=== PATIENT | female | born 1975 | race Two or more races ===

== ENCOUNTER 2020-10-07 16:13 | Emergency (ER) | payer MEDICAID, OTHER ==
[~2020-10-07] VITALS: Ht 160 cm; Wt 86.2 kg
[2020-10-07] MEDS ORDERED: SODIUM CHLORIDE 0.9% 1,000 ML IV ONE (17:15)
[2020-10-07] MEDS ORDERED: DexAMETHasone SOD PHOS 10MG/1ML VIAL INJ IV ONE (17:15)
[2020-10-07] MEDS ORDERED: ACETAMINOPHEN 500 MG TAB PO ONE (17:15)
[2020-10-07] MEDS ORDERED: DOXYCYCLINE 100MG/250ML 250 ML IV ONE (17:15)
[2020-10-07 17:35] LABS: Urine Bacteria FEW /hpf (None Seen); Urine Blood Negative /uL (Negative); Urine Hyaline Cast FEW /lpf (0 - 2); Urine Mucus FEW (None Seen); Urine Specific Gravity 1.019 (1.001-1.035); Urine WBC 2 /hpf (0 - 5)
[2020-10-07 17:59] LABS: Basophils # (auto) 0 10 ^3/uL (0-0.2); Basophils % (auto) 0.2 % (0.0-2.0); Eosinophils # (auto) 0 10 ^3/uL (0-0.8); Hematocrit 38.9 % (36.0-46.0); Hemoglobin 13.2 g/dL (12.2-16.2); Lymphocytes # (auto) 0.4 10 ^3/uL (0.4-5.4); Lymphocytes % (auto) 8.3 % (10.0-50.0); Mean Corpuscular Hemoglobin 30.7 pg (28.0-32.0); Mean Corpuscular Volume 90.2 fL (80.0-100.0); Monocytes # (auto) 0.2 10 ^3/uL (0-1.3); Monocytes % (auto) 3.4 % (0.0-12.0); Neutrophils # (auto) 4.4 10 ^3/uL (1.6-8.6); Neutrophils % (auto) 88.1 % (37.0-80.0); Red Blood Cells 4.32 10^6/uL (4.0-5.20); Red Cell Distribution Width 13.4 % (11.8-14.3)
[2020-10-07 18:14] LABS: Albumin 3.6 g/dL (3.4-5.0); Calcium 8.5 mg/dL (8.5-10.1); Potassium 3.4 mmol/L (3.5-5.1)
[2020-10-07 18:19] LABS: BUN/Creatinine Ratio 11.5; Bilirubin, Total 0.3 mg/dL (0.2-1.0); Total Protein 8.6 g/dL (6.4-8.2)
[2020-10-07 19:07] VITALS: BP 155/88
[2020-10-13] MEDS ORDERED: LISI20TA28 PO (17:55)
== END 2020-10-07 19:08 | disposition home or self-care (01) ==
LOC: ER 16:15
DX: J18.9 Pneumonia, unspecified organism (principal); J01.00 Acute maxillary sinusitis, unspecified; R50.9 Fever, unspecified; Z20.822 Contact with and (suspected) exposure to COVID-19
CPT/HCPCS: 36415; 71045; 80053; 81001; 85025; 87426; 96365; 96375; 99284; J1100; J3490; 96361

== ENCOUNTER 2020-10-09 09:02 | Inpatient (IN) | payer MEDICAID ==
[~2020-10-09] VITALS: Ht 160 cm; Wt 81.8 kg
[2020-10-09 09:45] LABS: Basophils # (auto) 0 10 ^3/uL (0-0.2); Eosinophils # (auto) 0 10 ^3/uL (0-0.8); Hematocrit 39.7 % (36.0-46.0); Hemoglobin 13.4 g/dL (12.2-16.2); Lymphocytes # (auto) 0.7 10 ^3/uL (0.4-5.4); Mean Corpuscular Hemoglobin 30.4 pg (28.0-32.0); Mean Corpuscular Hgb Conc. 33.8 g/dL (32.0-36.0); Mean Corpuscular Volume 90.1 fL (80.0-100.0); Monocytes # (auto) 0.5 10 ^3/uL (0-1.3); Monocytes % (auto) 3.7 % (0.0-12.0); Neutrophils # (auto) 13.5 10 ^3/uL (1.6-8.6); Neutrophils % (auto) 91.3 % (37.0-80.0); Platelet Count (auto) 313 10^3/uL (140-450); Red Blood Cells 4.41 10^6/uL (4.0-5.20); Red Cell Distribution Width 13.4 % (11.8-14.3); White Blood Cell 14.8 10^3/uL (4.4-10.8)
[2020-10-09 10:03] LABS: Alanine Aminotransferase 30 U/L (13-56); Albumin 3.4 g/dL (3.4-5.0); Anion Gap 11 (5-15); Aspartate Aminotransferase 21 U/L (15-37); BUN/Creatinine Ratio 15.8; Blood Urea Nitrogen 15 mg/dL (7-18); Calcium 9.5 mg/dL (8.5-10.1); Carbon Dioxide 24 mmol/L (21-32); Chloride 107 mmol/L (98-107); GFR African American 82 mL/min; GFR Non-African American 68 mL/min; Glucose 127 mg/dL (74-106); Potassium 3.5 mmol/L (3.5-5.1); Sodium 142 mmol/L (136-145)
[2020-10-09 10:04] LABS: Lactic Acid w/Reflex 3.2 mmol/L (0.4-2.0)
[2020-10-09 10:08] LABS: Alkaline Phosphatase 92 U/L (45-117); Bilirubin, Total 0.4 mg/dL (0.2-1.0); Total Protein 8.1 g/dL (6.4-8.2)
[2020-10-09] MEDS ORDERED: ASPirin 81 mg TAB PO ONE (10:15)
[2020-10-09] MEDS ORDERED: AZITHROMYCIN 500MG/ 250ML 250 ML IV ONE (10:15)
[2020-10-09] MEDS ORDERED: ZINC SULFATE 220mg CAP or TAB PO ONE (10:15)
[2020-10-09] MEDS ORDERED: ASCORBIC ACID 500 MG TAB PO ONE (10:15)
[2020-10-09] MEDS ORDERED: DexAMETHasone SOD PHOS 10MG/1ML VIAL INJ IV ONE (10:15)
[2020-10-09] MEDS ORDERED: cefTRIAXone 1GM/50ML D5W 50 ML IV ONE (10:15)
[2020-10-09] MEDS ORDERED: ACETAMINOPHEN 500 MG TAB PO ONE (10:30)
[2020-10-09] MEDS ORDERED: REMDESIVIR PER PHARMACY 0 ML IV SCH (11:15)
[2020-10-09] MEDS ORDERED: KETOROLAC TROMETH 30 MG/ML 1ML VIAL IV ONE (11:15)
[2020-10-09] MEDS ORDERED: MORPHINE SULF INJ 2 MG/ML SYRINGE 1ML IV PRN ×2 (11:15)
[2020-10-09] MEDS ORDERED: NITROGLYCERIN 0.4 MG SL TAB SL PRN (11:15)
[2020-10-09] MEDS ORDERED: ACETAMINOPHEN 500 MG TAB PO PRN (11:15)
[2020-10-09 11:34] LABS: INR 0.94 (0.9-1.15); Partial Thromboplastin Time 25.6 sec (23.0-31.2)
[2020-10-09] MEDS: ONDANSETRON HCL 4 MG/2 ML VIAL IV PRN (11:51)
[2020-10-09 12:24] LABS: CRP High Sensitivity 3.82 mg/dL (< 0.3)
[2020-10-09] MEDS ORDERED: GABA-339 PO (14:05)
[2020-10-09] MEDS ORDERED: LISI-706 PO (14:05)
[2020-10-09] MEDS ORDERED: ASCO500T11 PO (14:05)
[2020-10-09] MEDS ORDERED: OMEP-434 PO (14:05)
[2020-10-09] MEDS ORDERED: ZINC220T6 PO (14:05)
[2020-10-09] MEDS ORDERED: REMDESIVIR 200 MG in NS 210ml LOADING DOSE ADULT IV ONE (15:00)
[2020-10-09 15:10] VITALS: BP 106/54
[2020-10-09 16:00] VITALS: BP 106/54
[2020-10-09 16:24] VITALS: BP 106/54
[2020-10-09] MEDS: ALBUTEROL SULF HFA 90MCG INH 200DOSE IN PRN (20:28)
[2020-10-09] MEDS: BUDESONIDE (INHALATION) 180 MCG IH IN SCH (20:28)
[2020-10-09] MEDS: DOXYCYCLINE 100 MG TAB/CAP PO SCH (21:56)
[2020-10-09] MEDS: ENOXAPARIN SOD 40 MG/0.4 ML SYRINGE SC SCH (21:56)
[2020-10-09] MEDS ORDERED: BUDESONIDE (INHALATION) 0.5 MG/2 ML NEB NEB SCH (22:00)
[2020-10-10] VITALS (7 sets, daily range): BP systolic 112–135; BP diastolic 49–72
[2020-10-10] MEDS: HYDROcodone-ACET 5/325MG TAB PO PRN ×2 (00:26→18:53)
[2020-10-10 05:21] LABS: Basophils # (auto) 0 10 ^3/uL (0-0.2); Basophils % (auto) 0.1 % (0.0-2.0); Eosinophils # (auto) 0 10 ^3/uL (0-0.8); Hematocrit 35.3 % (36.0-46.0); Lymphocytes # (auto) 0.9 10 ^3/uL (0.4-5.4); Mean Corpuscular Hemoglobin 30.5 pg (28.0-32.0); Mean Corpuscular Volume 89.5 fL (80.0-100.0); Monocytes # (auto) 0.5 10 ^3/uL (0-1.3); Monocytes % (auto) 3.9 % (0.0-12.0); Neutrophils # (auto) 11.2 10 ^3/uL (1.6-8.6); Platelet Count (auto) 291 10^3/uL (140-450); Red Blood Cells 3.94 10^6/uL (4.0-5.20); Red Cell Distribution Width 13.5 % (11.8-14.3); White Blood Cell 12.6 10^3/uL (4.4-10.8)
[2020-10-10 05:40] LABS: Albumin 2.8 g/dL (3.4-5.0); BUN/Creatinine Ratio 26.8; Potassium 3.6 mmol/L (3.5-5.1)
[2020-10-10 05:41] LABS: Bilirubin, Total 0.4 mg/dL (0.2-1.0); Total Protein 6.8 g/dL (6.4-8.2)
[2020-10-10] MEDS ORDERED: IVERMECTIN 3 MG TAB PO ONE (07:00)
[2020-10-10] MEDS: BUDESONIDE (INHALATION) 180 MCG IH IN SCH ×2 (07:00→19:25)
[2020-10-10] MEDS: ALBUTEROL SULF HFA 90MCG INH 200DOSE IN PRN ×2 (07:00→19:38)
[2020-10-10] MEDS: cefTRIAXone 1GM/50ML D5W 50 ML IV SCH (09:00)
[2020-10-10] MEDS: ZINC SULFATE 220mg CAP or TAB PO SCH (09:01)
[2020-10-10] MEDS: DexAMETHasone SOD PHOS 10MG/1ML VIAL INJ IV SCH (09:01)
[2020-10-10] MEDS: CHOLECALCIFEROL (VITD3) 2,000 UNIT CAP/TAB PO SCH (09:02)
[2020-10-10] MEDS: ASCORBIC ACID 1,000 MG TAB PO SCH (09:02)
[2020-10-10] MEDS: DOXYCYCLINE 100 MG TAB/CAP PO SCH ×2 (09:02→22:00)
[2020-10-10] MEDS: FAMOTIDINE 20 MG TAB PO SCH (09:02)
[2020-10-10] MEDS: ENOXAPARIN SOD 40 MG/0.4 ML SYRINGE SC SCH ×2 (09:03→22:00)
[2020-10-10] MEDS ORDERED: AZITHROMYCIN 500MG/ 250ML 250 ML IV SCH (10:00)
[2020-10-10] MEDS: guaiFENesin-DM 100/10mg/5ml SYR PO PRN ×2 (12:46→18:44)
[2020-10-10] MEDS: REMDESIVIR 100mg 100 MG in SODIUM CHL 0.9% 230 ML IV SCH (16:57)
[2020-10-11] VITALS: BP 122/77
[2020-10-11 07:10] LABS: Potassium 3.5 mmol/L (3.5-5.1)
[2020-10-11 07:17] LABS: Albumin 2.7 g/dL (3.4-5.0); BUN/Creatinine Ratio 28.4; Bilirubin, Total 0.5 mg/dL (0.2-1.0); Calcium 8.9 mg/dL (8.5-10.1); Total Protein 7.1 g/dL (6.4-8.2)
[2020-10-11 08:00] VITALS: BP 135/76
[2020-10-11] MEDS: ENOXAPARIN SOD 40 MG/0.4 ML SYRINGE SC SCH ×2 (09:40→22:00)
[2020-10-11] MEDS: ZINC SULFATE 220mg CAP or TAB PO SCH (09:41)
[2020-10-11] MEDS: CHOLECALCIFEROL (VITD3) 2,000 UNIT CAP/TAB PO SCH (09:41)
[2020-10-11] MEDS: ASCORBIC ACID 1,000 MG TAB PO SCH (09:41)
[2020-10-11] MEDS: FAMOTIDINE 20 MG TAB PO SCH (09:41)
[2020-10-11] MEDS: BUDESONIDE (INHALATION) 180 MCG IH IN SCH ×2 (09:48→18:47)
[2020-10-11] MEDS: DOXYCYCLINE 100 MG TAB/CAP PO SCH ×2 (09:48→22:00)
[2020-10-11] MEDS: DexAMETHasone SOD PHOS 10MG/1ML VIAL INJ IV SCH (09:48)
[2020-10-11] MEDS: cefTRIAXone 1GM/50ML D5W 50 ML IV SCH (10:00)
[2020-10-11] MEDS: REMDESIVIR 100mg 100 MG in SODIUM CHL 0.9% 230 ML IV SCH (15:15)
[2020-10-11 15:42] VITALS: BP 108/78
[2020-10-11 15:44] VITALS: BP 117/63
[2020-10-11] MEDS: ALBUTEROL SULF HFA 90MCG INH 200DOSE IN PRN (18:47)
[2020-10-11] MEDS: guaiFENesin-DM 100/10mg/5ml SYR PO PRN (20:22)
[2020-10-12] VITALS: BP 146/69
[2020-10-12] MEDS: ONDANSETRON HCL 4 MG/2 ML VIAL IV PRN ×2 (00:23→22:38)
[2020-10-12] MEDS: BUDESONIDE (INHALATION) 180 MCG IH IN SCH ×2 (06:45→18:06)
[2020-10-12] MEDS: ALBUTEROL SULF HFA 90MCG INH 200DOSE IN PRN ×2 (06:45→20:34)
[2020-10-12 06:58] LABS: Potassium 3.7 mmol/L (3.5-5.1)
[2020-10-12 07:21] LABS: Albumin 2.7 g/dL (3.4-5.0); BUN/Creatinine Ratio 28.6; Bilirubin, Total 0.4 mg/dL (0.2-1.0); Calcium 8.7 mg/dL (8.5-10.1); Total Protein 6.8 g/dL (6.4-8.2)
[2020-10-12 08:00] VITALS: BP 130/76
[2020-10-12] MEDS: ASCORBIC ACID 1,000 MG TAB PO SCH (09:53)
[2020-10-12] MEDS: cefTRIAXone 1GM/50ML D5W 50 ML IV SCH ×2 (09:53→09:56)
[2020-10-12] MEDS: DexAMETHasone SOD PHOS 10MG/1ML VIAL INJ IV SCH (09:53)
[2020-10-12] MEDS: ENOXAPARIN SOD 40 MG/0.4 ML SYRINGE SC SCH ×2 (09:53→22:36)
[2020-10-12] MEDS: FAMOTIDINE 20 MG TAB PO SCH (09:54)
[2020-10-12] MEDS: DOXYCYCLINE 100 MG TAB/CAP PO SCH ×2 (09:54→22:00)
[2020-10-12] MEDS: CHOLECALCIFEROL (VITD3) 2,000 UNIT CAP/TAB PO SCH (09:55)
[2020-10-12] MEDS: ZINC SULFATE 220mg CAP or TAB PO SCH (09:55)
[2020-10-12] MEDS: REMDESIVIR 100mg 100 MG in SODIUM CHL 0.9% 230 ML IV SCH (15:30)
[2020-10-12 15:53] VITALS: BP 120/68
[2020-10-12] MEDS: HYDROcodone-ACET 5/325MG TAB PO PRN (20:04)
[2020-10-13] VITALS: BP 119/77
[2020-10-13] MEDS: BUDESONIDE (INHALATION) 180 MCG IH IN SCH (06:00)
[2020-10-13 06:26] LABS: Potassium 3.8 mmol/L (3.5-5.1)
[2020-10-13 06:44] LABS: Albumin 2.7 g/dL (3.4-5.0); BUN/Creatinine Ratio 22.3; Bilirubin, Total 0.4 mg/dL (0.2-1.0); Total Protein 6.9 g/dL (6.4-8.2)
[2020-10-13 07:30] VITALS: BP 134/77
[2020-10-13 08:00] VITALS: BP 141/73
[2020-10-13] MEDS: cefTRIAXone 1GM/50ML D5W 50 ML IV SCH (09:10)
[2020-10-13] MEDS: CHOLECALCIFEROL (VITD3) 2,000 UNIT CAP/TAB PO SCH (10:00)
[2020-10-13] MEDS: FAMOTIDINE 20 MG TAB PO SCH (10:00)
[2020-10-13] MEDS: DexAMETHasone SOD PHOS 10MG/1ML VIAL INJ IV SCH (10:31)
[2020-10-13] MEDS: ASCORBIC ACID 1,000 MG TAB PO SCH (10:31)
[2020-10-13] MEDS: ZINC SULFATE 220mg CAP or TAB PO SCH (10:31)
[2020-10-13] MEDS: ENOXAPARIN SOD 40 MG/0.4 ML SYRINGE SC SCH (10:32)
[2020-10-13] MEDS: DOXYCYCLINE 100 MG TAB/CAP PO SCH (10:33)
[2020-10-13] MEDS: REMDESIVIR 100mg 100 MG in SODIUM CHL 0.9% 230 ML IV SCH (15:31)
[2020-10-13] MEDS ORDERED: LISI-646 PO (17:55)
[2020-10-13] MEDS ORDERED: CHOL1CAP47 PO (17:55)
[2020-10-13] MEDS ORDERED: ASPI81CH59 PO (17:55)
[2020-10-13] MEDS ORDERED: FAMO-12 PO (17:55)
[2020-10-13] MEDS ORDERED: ASCO10003 PO (17:55)
[2020-10-13] MEDS ORDERED: DEXT1SYP9 PO (17:55)
[2020-10-13] MEDS ORDERED: DEX4T PO (17:55)
[2020-10-13] MEDS ORDERED: HYDR25TA5 PO (17:55)
[2020-10-13] MEDS ORDERED: ALBUAER3 IN (17:55)
[2020-10-13] MEDS ORDERED: DOX100T PO (17:55)
== END 2020-10-13 19:48 | disposition home or self-care (01) | DRG 720 ==
LOC: ER 09:02 → TELE 09:03 → TELE-WESTW 15:20
PROVIDERS: ADMIT Nurse Practitioner Acute Care; ATTEND Family Medicine
PROC: XW033E5 Introduction of Remdesivir Anti-infective into Peripheral Vein, Percutaneous Approach, New Technology Group 5 (ICD-10-PCS; 2020-10-09)
PROC: XW13325 Transfusion of Convalescent Plasma (Nonautologous) into Peripheral Vein, Percutaneous Approach, New Technology Group 5 (ICD-10-PCS; principal; 2020-10-10)
PROC: 05H933Z Insertion of Infusion Device into Right Brachial Vein, Percutaneous Approach (ICD-10-PCS; 2020-10-12)
PROC: B54MZZA Ultrasonography of Right Upper Extremity Veins, Guidance (ICD-10-PCS; 2020-10-12)
DX: A41.89 Other specified sepsis (principal); U07.1 COVID-19; J12.82 Pneumonia due to coronavirus disease 2019; J96.01 Acute respiratory failure with hypoxia; E66.9 Obesity, unspecified; D68.59 Other primary thrombophilia; D89.839 Cytokine release syndrome, grade unspecified; I10 Essential (primary) hypertension; E44.0 Moderate protein-calorie malnutrition; E78.5 Hyperlipidemia, unspecified; Z68.32 Body mass index [BMI] 32.0-32.9, adult; Z88.1 Allergy status to other antibiotic agents; Z90.49 Acquired absence of other specified parts of digestive tract
CPT/HCPCS: 36415; 71045; 80053; 82728; 83605; 83615; 83880; 84484; 85025; 85379; 85610; 85730; 86141; 86850; 86900; 86901; 87040; 87086; 87426; 87804; 93005; 94640; 96365; 96367; 96375; 99291; G0378; J0696; J1100; J1885; J2405

== ENCOUNTER 2020-10-24 14:42 | Inpatient (IN) | payer MEDICAID ==
[~2020-10-24] VITALS: Ht 160 cm; Wt 82.7 kg
[~2020-10-24 14:42] MED LIST: ALBUAER3 IN; ASCO10003 PO; ASPI81CH59 PO; CHOL1CAP47 PO; DEX4T PO; DEXT1SYP9 PO; DOX100T PO; FAMO-12 PO; HYDR25TA5 PO; LISI-646 PO
[2020-10-24 15:08] LABS: Basophils # (auto) 0.1 10 ^3/uL (0-0.2); Basophils % (auto) 0.9 % (0.0-2.0); Eosinophils # (auto) 0.1 10 ^3/uL (0-0.8); Eosinophils % (auto) 0.9 % (0.0-7.0); Hematocrit 39.3 % (36.0-46.0); Hemoglobin 13.7 g/dL (12.2-16.2); Lymphocytes # (auto) 1.1 10 ^3/uL (0.4-5.4); Lymphocytes % (auto) 16.8 % (10.0-50.0); Mean Corpuscular Hemoglobin 31.5 pg (28.0-32.0); Mean Corpuscular Hgb Conc. 34.8 g/dL (32.0-36.0); Mean Corpuscular Volume 90.6 fL (80.0-100.0); Monocytes # (auto) 0.5 10 ^3/uL (0-1.3); Monocytes % (auto) 7.5 % (0.0-12.0); Neutrophils # (auto) 4.8 10 ^3/uL (1.6-8.6); Neutrophils % (auto) 73.9 % (37.0-80.0); Nucleated Red Blood Cells % 0.1 %; Platelet Count (auto) 250 10^3/uL (140-450); Red Blood Cells 4.34 10^6/uL (4.0-5.20); Red Cell Distribution Width 13.4 % (11.8-14.3); White Blood Cell 6.5 10^3/uL (4.4-10.8)
[2020-10-24 15:30] LABS: Albumin 3.3 g/dL (3.4-5.0); Potassium 3.9 mmol/L (3.5-5.1)
[2020-10-24 15:34] LABS: Bilirubin, Total 0.7 mg/dL (0.2-1.0); Total Protein 7.5 g/dL (6.4-8.2)
[2020-10-24] MEDS ORDERED: MORPHINE SULFATE 4 MG/ML SYR/VIAL IV ONE (15:45)
[2020-10-24] MEDS ORDERED: SODIUM CHLORIDE 0.9% 1,000 ML IV ONE (15:45)
[2020-10-24] MEDS ORDERED: ONDANSETRON HCL 4 MG/2 ML VIAL IV ONE (15:45)
[2020-10-24] MEDS: SODIUM CHLORIDE 0.9% 1,000 ML IV SCH (19:35)
[2020-10-24 20:14] LABS: Urine Bacteria NONE SEEN /hpf (None Seen); Urine Blood Negative /uL (Negative); Urine Mucus FEW (None Seen); Urine Specific Gravity 1.032 (1.001-1.035); Urine WBC 1 /hpf (0 - 5)
[2020-10-24] MEDS: MORPHINE SULF INJ 2 MG/ML SYRINGE 1ML IV PRN (20:20)
[2020-10-24] MEDS: ONDANSETRON HCL 4 MG/2 ML VIAL IV PRN (22:40)
[2020-10-24] MEDS: METOCLOPRAMIDE HCL 5MG/ml INJ 2ml VIAL IV SCH (23:26)
[2020-10-25] MEDS: MORPHINE SULF INJ 2 MG/ML SYRINGE 1ML IV PRN ×4 (01:18→17:15)
[2020-10-25] MEDS: SODIUM CHLORIDE 0.9% 1,000 ML IV SCH ×2 (05:35→11:23)
[2020-10-25] MEDS: METOCLOPRAMIDE HCL 5MG/ml INJ 2ml VIAL IV SCH (06:28)
[2020-10-25] MEDS ORDERED: GASTROGRAFIN 120 ML SOL ONE (09:14)
[2020-10-25] MEDS: PANTOPRAZOLE 40 MG/10 ML VIAL INJ IV SCH (10:00)
[2020-10-25] MEDS: ONDANSETRON HCL 4 MG/2 ML VIAL IV PRN ×2 (10:40→17:15)
[2020-10-25] MEDS ORDERED: GABA300C10 PO (21:04)
[2020-10-25] MEDS ORDERED: ZINC100T5 PO (21:04)
[2020-10-26] VITALS: BP 122/67
[2020-10-26] MEDS: SODIUM CHLORIDE 0.9% 1,000 ML IV SCH ×3 (00:53→21:15)
[2020-10-26 01:00] VITALS: BP 133/75
[2020-10-26] MEDS: MORPHINE SULF INJ 2 MG/ML SYRINGE 1ML IV PRN (01:32)
[2020-10-26 05:00] VITALS: BP 126/68
[2020-10-26 08:00] VITALS: BP 138/81
[2020-10-26] MEDS: PANTOPRAZOLE 40 MG/10 ML VIAL INJ IV SCH (10:12)
[2020-10-26 16:00] VITALS: BP 140/79
[2020-10-26 22:26] VITALS: BP 124/65
[2020-10-27 05:00] VITALS: BP 113/53
[2020-10-27 09:00] VITALS: BP 125/69
[2020-10-27] MEDS: SODIUM CHLORIDE 0.9% 1,000 ML IV SCH (09:44)
[2020-10-27] MEDS: PANTOPRAZOLE 40 MG/10 ML VIAL INJ IV SCH (09:45)
== END 2020-10-27 14:30 | disposition home or self-care (01) | DRG 247 ==
LOC: ER 14:42 → OVERFLOW 19:13 → EAST 10-25 19:50
PROVIDERS: ADMIT Nurse Practitioner Acute Care; ATTEND Internal Medicine Nephrology
DX: K56.600 Partial intestinal obstruction, unspecified as to cause (principal); J18.9 Pneumonia, unspecified organism; R09.02 Hypoxemia; E66.9 Obesity, unspecified; I10 Essential (primary) hypertension; F41.9 Anxiety disorder, unspecified; Z20.822 Contact with and (suspected) exposure to COVID-19; Z68.32 Body mass index [BMI] 32.0-32.9, adult; Z88.1 Allergy status to other antibiotic agents; Z79.82 Long term (current) use of aspirin; Z80.8 Family history of malignant neoplasm of other organs or systems; Z82.49 Family history of ischemic heart disease and other diseases of the circulatory system; Z83.3 Family history of diabetes mellitus; Z85.41 Personal history of malignant neoplasm of cervix uteri; Z92.3 Personal history of irradiation; Z87.11 Personal history of peptic ulcer disease
CPT/HCPCS: 36415; 71045; 71250; 74176; 74250; 80053; 81001; 83605; 83880; 84484; 85025; 87040; 87086; 87426; 93005; C9113; G0378; J2405